=== PATIENT | female | born 1980 | race Two or more races ===

== ENCOUNTER → 2020-06-03 | Outpatient (CLI) | payer BC ==
[2020-06-03 08:39] LABS: BASOPHILS % (AUTO) 0.5 % (0.0-2.0); EOSINOPHILS % (AUTO) 1.8 % (0.0-6.0); HEMATOCRIT 45 % (33-45); HEMOGLOBIN 14.9 g/dL (11.5-14.8); LYMPHOCYTES # (AUTO) 1.8 /CMM (0.8-4.8); LYMPHOCYTES % (AUTO) 17.1 % (20.0-44.0); MEAN CORPUSCULAR HGB CONC 33 g/dl (31.0-36.0); MEAN CORPUSCULAR VOLUME 83 fL (82-100); MONOCYTES # (AUTO) 0.5 /CMM (0.1-1.30); MONOCYTES % (AUTO) 5.1 % (2.0-12.0); NEUTROPHILS # (AUTO) 7.8 /CMM (1.8-8.9); NEUTROPHILS % (AUTO) 75.5 % (43.0-81.0); PLATELET COUNT (AUTO) 216 /CMM (150-450); RED BLOOD CELL COUNT(AUTO) 5.45 MIL/uL (4.0-5.2); WHITE BLOOD COUNT (AUTO) 10.3 K/uL (4.3-11.0)
[2020-06-03 09:00] LABS: APPEARANCE,URINE SL CLOUDY (CLEAR); BILIRUBIN,URINE NEGATIVE (NEGATIVE); BLOOD, URINE SMALL Ery/uL (NEGATIVE); COLOR,URINE YELLOW (YELLOW); KETONES,URINE NEGATIVE (NEGATIVE); LEUKOCYTE ESTERASE ,URINE NEGATIVE (NEGATIVE); NITRITE, URINE NEGATIVE (NEGATIVE); PROTEIN,URINE NEGATIVE (NEGATIVE); UGLUCOSE NEGATIVE (NEGATIVE); UROBILINOGEN,URINE 0.2 EU/dL (0.2)
[2020-06-03 09:06] LABS: THYROID STIMULATING HORMONE 1.754 uIU/mL (0.358-3.74)
[2020-06-03 09:26] LABS: ALBUMIN 3.8 g/dL (3.4-5.0); BILIRUBIN,TOTAL 0.4 mg/dL (0.2-1.0); CALCIUM, SERUM 8.9 mg/dL (8.5-10.1); CREATININE 0.6 mg/dL (0.6-1.3); POTASSIUM 4.1 mmol/L (3.5-5.1); TOTAL PROTEIN, SERUM 7.7 g/dL (6.4-8.2)
== END | disposition home or self-care (01) ==
LOC: LAB 08:03
PROVIDERS: ATTEND Family Medicine
DX: I10 Essential (primary) hypertension (principal); E55.9 Vitamin D deficiency, unspecified; R73.9 Hyperglycemia, unspecified
CPT/HCPCS: 36415; 80053-TC; 80061-TC; 81000-TC; 82306; 84439-TC; 84443-TC; 85025-TC

== ENCOUNTER 2021-01-26 18:34 | Emergency (ER) | payer BC ==
[~2021-01-26] VITALS: Ht 157.5 cm; Wt 113.4 kg
[2021-01-26 18:39] VITALS: BP 140/75
[2021-01-26] MEDS ORDERED: LOSA100T31 PO (19:03)
[2021-01-26] MEDS ORDERED: ERYT3.5O9 LEFTEYE (19:04)
--- NOTE | 2021-01-26 19:09 | NUR ---
Patient discharged to home in stable condition. Written and verbal after care instructions given. Patient verbalizes understanding of instruction. Pt ambulatory with a steady gait
== END 2021-01-26 19:10 | disposition home or self-care (01) ==
LOC: ER 18:40
DX: H00.014 Hordeolum externum left upper eyelid (principal); Z79.899 Other long term (current) drug therapy

== ENCOUNTER 2021-09-29 10:02 | Outpatient (CLI) | payer BC ==
[~2021-09-29 10:02] MED LIST: ERYT3.5O9 LEFTEYE; LOSA100T31 PO
[2021-09-29] MEDS ORDERED: GADOTERATE MEGLUMINE 10 MMOL/20 ML VIAL IV ONE (10:03)
== END 2021-09-29 23:59 | disposition home or self-care (01) ==
LOC: MRI 10:02
DX: H90.5 Unspecified sensorineural hearing loss (principal)
CPT/HCPCS: 70553; A9575

== ENCOUNTER 2022-01-30 12:42 | Emergency (ER) | payer BC, OTHER ==
[~2022-01-30] VITALS: Ht 162.6 cm; Wt 123.8 kg
[2022-01-30 12:42] VITALS: BP 177/104
[2022-01-30] MEDS ORDERED: IBUP-1955 PO (13:48)
--- NOTE | 2022-01-30 14:28 | NUR ---
Patient discharged to home in stable condition. Written and verbal after care instructions given. Patient verbalizes understanding of instruction.
== END 2022-01-30 14:29 | disposition home or self-care (01) ==
LOC: ER 12:42
DX: S76.901A Unspecified injury of unspecified muscles, fascia and tendons at thigh level, right thigh, initial encounter (principal); W01.0XXA Fall on same level from slipping, tripping and stumbling without subsequent striking against object, initial encounter; Y93.89 Activity, other specified; Y92.89 Other specified places as the place of occurrence of the external cause; Y99.8 Other external cause status

== ENCOUNTER 2022-02-09 11:55 | Outpatient (CLI) | payer BC, OTHER ==
[~2022-02-09 11:55] MED LIST changes: +IBUP-1955 PO
== END 2022-02-09 23:59 | disposition home or self-care (01) ==
LOC: MRI 11:55
PROVIDERS: ATTEND Family Medicine
DX: M22.42 Chondromalacia patellae, left knee (principal); M89.8X6 Other specified disorders of bone, lower leg; M25.052 Hemarthrosis, left hip; R60.9 Edema, unspecified
CPT/HCPCS: 73721-TC

== ENCOUNTER 2022-09-25 11:31 | Outpatient (CLI) | payer BC, OTHER | END 2022-09-25 23:59 | disposition home or self-care (01) | LOC: RAD 11:31 | PROVIDERS: ATTEND Family Medicine | DX: M25.562 Pain in left knee (principal) | CPT/HCPCS: 73562 ==

== ENCOUNTER 2022-11-18 07:04 | Emergency (ER) | payer BC, OTHER ==
[~2022-11-18] VITALS: Ht 165.1 cm; Wt 122.5 kg
[2022-11-18 07:07] VITALS: BP 135/80
[2022-11-18] MEDS ORDERED: CLIN300C12 PO ×2 (07:17→09:22)
--- NOTE | 2022-11-18 07:19 | NUR ---
Patient discharged to home in stable condition. Written and verbal after care instructions given. Patient verbalizes understanding of instruction. Pt ambulatory with a steady gait
[2022-11-18] MEDS ORDERED: CLINDAMYCIN HCL 150 MG CAPSULE PO ONE (07:30)
== END 2022-11-18 07:19 | disposition home or self-care (01) ==
LOC: ER 07:17
DX: L03.112 Cellulitis of left axilla (principal); Z79.899 Other long term (current) drug therapy

== ENCOUNTER 2022-11-22 11:16 | Emergency (ER) | payer BC, OTHER ==
[~2022-11-22] VITALS: Ht 162.6 cm; Wt 120.7 kg
[~2022-11-22 11:16] MED LIST changes: +CLIN300C12 PO
--- NOTE | 2022-11-22 14:14 | NUR ---
at bedside. Put lidocaine in abcess under left armpit.
[2022-11-22] MEDS ORDERED: HYDR-3976 PO (14:18)
[2022-11-22] MEDS ORDERED: CLIN300C12 PO (15:26)
[2022-11-22 15:31] VITALS: BP 132/66
--- NOTE | 2022-11-22 15:31 | NUR ---
Patient discharged to home in stable condition. Written and verbal after care instructions given. Patient verbalizes understanding of instruction.
== END 2022-11-22 15:32 | disposition home or self-care (01) ==
LOC: ER 11:35
DX: L73.2 Hidradenitis suppurativa (principal); Z79.899 Other long term (current) drug therapy
CPT/HCPCS: 10060; 99282; A6403 ×2; A6407

== ENCOUNTER 2023-03-10 07:26 | Emergency (ER) | payer BC, OTHER ==
[~2023-03-10] VITALS: Ht 165.1 cm; Wt 118.8 kg
[~2023-03-10 07:26] MED LIST changes: +HYDR-3976 PO
[2023-03-10 07:40] VITALS: BP 146/82
--- NOTE | 2023-03-10 07:45 | NUR ---
C/O BILATERAL "ARMPIT BOIL" I&D DONE 3 DAYS AGO.
--- NOTE | 2023-03-10 08:00 | NUR ---
AT BEDSIDE FOR EVAL
[2023-03-10] MEDS ORDERED: CLIN300C12 PO (08:13)
--- NOTE | 2023-03-10 08:36 | NUR ---
Patient discharged to home in stable condition. Written and verbal after care instructions given. Patient verbalizes understanding of instruction.
== END 2023-03-10 08:36 | disposition home or self-care (01) ==
LOC: ER 07:32
DX: L73.2 Hidradenitis suppurativa (principal); Z79.899 Other long term (current) drug therapy

== ENCOUNTER 2023-05-15 19:24 | Emergency (ER) | payer BC, OTHER ==
[~2023-05-15] VITALS: Ht 162.6 cm; Wt 117.9 kg
--- NOTE | 2023-05-15 19:33 | NUR ---
PT BIBS C/O TRIP AND FALL AT APPROX 1700, C/O L KNEE PAIN, NO LOC. PT AAOX4, AMBULATORY, MOVES ALL EXTREMITIES. AWAITING MD KINGSLEY.
[2023-05-15] MEDS ORDERED: KETOROLAC TROMETHAMINE INJ 30 MG/ML VIAL ONE (19:51)
[2023-05-15] MEDS: KETOROLAC TROMETHAMINE INJ 60 MG/2 ML VIAL IM ONE (19:51)
--- NOTE | 2023-05-15 20:53 | NUR ---
Patient discharged to home in stable condition. Written and verbal after care instructions given. Patient verbalizes understanding of instruction. Work note provided.
[2023-05-15 20:55] VITALS: BP 166/79; TEMP 97.9; O2SAT 100
== END 2023-05-15 20:56 | disposition home or self-care (01) ==
LOC: ER 19:25
DX: M25.562 Pain in left knee (principal); W01.0XXA Fall on same level from slipping, tripping and stumbling without subsequent striking against object, initial encounter; Y93.89 Activity, other specified; Y92.89 Other specified places as the place of occurrence of the external cause; Y99.8 Other external cause status
CPT/HCPCS: 99283; 96372; 73564; J1885

== ENCOUNTER 2024-12-28 09:53 | Emergency (ER) | payer BC, OTHER ==
[~2024-12-28] VITALS: Ht 167.6 cm; Wt 127.0 kg
[2024-12-28] MEDS ORDERED: LIDOCAINE 1%-EPI 1:100,000 20 ML VIAL ONE (10:21)
[2024-12-28] MEDS ORDERED: IBUPROFEN 400 MG TABLET ONE (10:22)
[2024-12-28] MEDS ORDERED: ACETAMINOPHEN ES 500 MG TABLET ONE (10:22)
[2024-12-28] MEDS: ACETAMINOPHEN ES 500 MG TABLET PO ONE (10:26)
[2024-12-28] MEDS: IBUPROFEN 400 MG TABLET PO ONE (10:26)
[2024-12-28] MEDS: LIDOCAINE 1%-EPI 1:100,000 20 ML VIAL TP ONE (10:27)
[2024-12-28] MEDS ORDERED: CLIN150C16 PO (11:18)
[2024-12-28 11:29] VITALS: BP 155/90; TEMP 98; O2SAT 99
== END 2024-12-28 11:29 | disposition home or self-care (01) ==
LOC: ER 10:05
DX: L02.215 Cutaneous abscess of perineum (principal); L73.2 Hidradenitis suppurativa; Z79.899 Other long term (current) drug therapy
CPT/HCPCS: 99284; 10060; J3490

== ENCOUNTER 2025-05-12 22:42 | Emergency (ER) | payer BC, OTHER ==
[~2025-05-12] VITALS: Ht 167.6 cm; Wt 127.0 kg
[~2025-05-12 22:42] MED LIST changes: +CLIN150C16 PO
[2025-05-12 22:44] VITALS: BP 121/70; TEMP 98.4
[2025-05-13] MEDS ORDERED: AZITHROMYCIN 250 MG TABLET ONE (00:35)
[2025-05-13] MEDS ORDERED: CIPROFLOXACIN HCL 500 MG TABLET ONE (00:36)
[2025-05-13] MEDS: CIPROFLOXACIN HCL 250 MG TABLET PO ONE (00:45)
[2025-05-13] MEDS: AZITHROMYCIN 250 MG TABLET PO ONE (00:45)
[2025-05-13 01:00] VITALS: O2SAT 94
== END 2025-05-13 02:44 | disposition home or self-care (01) ==
LOC: ER 22:45
DX: Z13.89 Encounter for screening for other disorder (principal); Z79.899 Other long term (current) drug therapy